=== PATIENT | male | born 1935 | race Caucasian/White ===

== ENCOUNTER 2022-02-21 08:37 | Day surgery (SDC) | payer MEDICARE, MEDICAID, SELFPAY ==
[2022-02-18 12:09] VITALS: BMI 29.0
--- NOTE | 2022-02-21 07:39 | W.PM.OPSFHP ---
Same Day Surgery H&P Indication for Procedure/HPI DATE OF PROCEDURE: February 21, 2022 CHIEF COMPLAINT/INDICATIONFOR SURGICAL PROCEDURE: Black tarry stool black black tarry stools and bleeding tarry black stools and PREOP DIAGNOSIS: Hematochezia hematochezia PLANNED PROCEDURE: Operation Date: 02/21/22 10:00 Proposed Procedures p EGD [id number],K92.1(Not Applicable) - Wade Hugo MD s Colonoscopy(Not Applicable) - Wade Hugo MD Medications/Allergies* Home Medications Medication Instructions Recorded Confirmed Type amlodipine 10 mg tablet 10 mg PO DAILY 01/13/22 01/19/22 History aspirin 325 mg tablet 325 mg PO DAILY 01/13/22 01/19/22 History baclofen 10 mg tablet 10 mg PO DAILY 01/13/22 01/13/22 History buspirone 10 mg tablet 10 mg PO BID 01/13/22 01/19/22 History celecoxib 100 mg capsule (Celebrex) 100 mg PO BID 01/13/22 01/13/22 History citalopram 20 mg tablet 20 mg PO DAILY 01/13/22 01/19/22 History docusate sodium 50 mg capsule 50 mg PO DAILY 01/13/22 01/19/22 History (Colace Clear) furosemide 20 mg tablet (Lasix) 20 mg PO DAILY 01/13/22 01/19/22 History gabapentin 300 mg capsule 300 mg PO DAILY 01/13/22 01/19/22 History (Neurontin) glipizide 10 mg tablet (Glucotrol) 10 mg PO DAILY 01/13/22 01/19/22 History hydrochlorothiazide 25 mg tablet 25 mg PO DAILY 01/13/22 01/19/22 History insulin glargine 100 unit/mL (3 10 unit SUBCUT BID 01/13/22 01/19/22 History mL) subcutaneous pen (Lantus Solostar U-100 Insulin) levocetirizine 5 mg tablet (Xyzal) 5 mg PO DAILY 01/13/22 01/19/22 History levothyroxine 175 mcg capsule 175 mcg PO DAILY 01/13/22 01/19/22 History metformin 500 mg tablet 500 mg PO DAILY 01/13/22 01/19/22 History metoclopramide HCl 10 mg tablet 10 mg PO Q6H PRN 01/13/22 01/19/22 History (Reglan) mirtazapine 15 mg tablet (Remeron) 15 mg PO DAILY 01/13/22 01/19/22 History omeprazole magnesium 20 mg 20 mg PO DAILY 01/13/22 01/19/22 History tablet,delayed release (Prilosec OTC) oxybutynin chloride 5 mg 5 mg PO DAILY 01/13/22 01/19/22 History tablet,extended release 24 hr tamsulosin 0.4 mg capsule (Flomax) 0.4 mg PO DAILY 01/13/22 01/19/22 History guaifenesin 600 mg tablet, 600 mg PO BID PRN 01/19/22 01/19/22 History extended release 12 hr (Mucinex) tyaftpza-egf-bfbzi acid 300 1 tab PO DAILY 01/19/22 01/19/22 History mcg-lycopene 600 mcg-lutein 300 mcg tablet (Men 50 Plus Multivitamin) nystatin 100,000 unit/gram topical 1 applic TOPICAL DAILY PRN 01/19/22 01/19/22 History ointment potassium chloride 10 mEq 10 meq PO DAILY 01/19/22 01/19/22 History capsule,extended release sennosides 8.6 mg-docusate sodium 1 tab-cap PO .2 daily tab 01/19/22 01/19/22 History 50 mg tablet (Senexon-S) tramadol 50 mg tablet 50 mg PO DAILY PRN 01/19/22 01/19/22 History vit C,E,zinc,copper-drjto6n 250 1 cap PO DAILY 01/19/22 01/19/22 History mg-lutein 5 mg-zeaxanthin 1 mg capsule (Ocuvite Adult 50 Plus) Allergies/Adverse Reactions Allergy/AdvReac Type Severity Reaction Status Date / Time pseudoephedrine Allergy ADR-Abdominal Verified 01/19/22 13:05 Pain Pertinent History/Comorbid Conditions* Social History Smoking and tobacco status: former smoker Pertinent Exam Findings alert, oriented x 3, clear to auscultation bilaterally, regular rate & rhythm, operative site marked and procedure specific exam findings Recommendations Surgery/Procedure today Coding Level of Care Code Acute Enlisted Advisor for Alisia Currie
[2022-02-21 09:00] VITALS: BP 141/68; PULSE 73; RESP 18; TEMP 36.1; O2SAT 99
[2022-02-21] MEDS: sodium chloride 0.9% 1,000 ML 30 ML IV (09:04)
--- NOTE | 2022-02-21 10:32 | P.ANESASSM_ITS ---
Pre-Anesthetic Assessment Height/Weight: Height 1.85 m Weight 99.79 kg Temp Pulse Resp BP Pulse Ox 97 F L 73 18 141/68 99 02/21/22 09:00 02/21/22 09:00 02/21/22 09:00 02/21/22 09:00 02/21/22 09:00 Preop Diagnosis: melena, hematochezia Operation Date: 02/21/22 10:00 Proposed Procedures p EGD [id number],K92.1(Not Applicable) - Wade Hugo MD s Colonoscopy(Not Applicable) - Wade Hugo MD Familial anesthetic complications: none Was Beta Sascha taken within 24 hours: N/A Was Clonidine taken within 24 hours: N/A Last intake: Intake Last Liquid Date 02/20/22 Last Liquid Time 19:30 Last Solid Date 02/19/22 Last Solid Time 14:00 Social No alcohol and No tobacco Exam alert, oriented x 3, clear to auscultation bilaterally and regular rate & rhythm Airway Mallampati: Class III Dentition: full Pulmonary None reported CV/HEM Hypertension GI Gastroesophageal Reflux Disease [facility] [place] None reported Neuropsych None reported Anesthetic Plan ASA status: 3 Anesthesia: MAC Risk of > 500 ml blood loss (7ml/kg in children): No Medications/Allergies Home Medications Medication Instructions Recorded Confirmed Last Taken Type amlodipine 10 mg tablet 10 mg PO DAILY 01/13/22 02/21/22 02/20/22 History aspirin 325 mg tablet 325 mg PO DAILY 01/13/22 02/21/22 02/20/22 History baclofen 10 mg tablet 10 mg PO DAILY 01/13/22 02/21/22 02/20/22 History buspirone 10 mg tablet 10 mg PO BID 01/13/22 02/21/22 02/20/22 History celecoxib 100 mg capsule (Celebrex) 100 mg PO BID 01/13/22 02/21/22 02/20/22 History citalopram 20 mg tablet 20 mg PO DAILY 01/13/22 02/21/22 02/20/22 History docusate sodium 50 mg capsule 50 mg PO DAILY 01/13/22 02/21/22 02/20/22 History (Colace Clear) furosemide 20 mg tablet (Lasix) 20 mg PO DAILY 01/13/22 02/21/22 02/20/22 History gabapentin 300 mg capsule 300 mg PO DAILY 01/13/22 02/21/22 02/20/22 History (Neurontin) glipizide 10 mg tablet (Glucotrol) 10 mg PO DAILY 01/13/22 02/21/22 02/20/22 History hydrochlorothiazide 25 mg tablet 25 mg PO DAILY 01/13/22 02/21/22 02/20/22 History insulin glargine 100 unit/mL (3 10 unit SUBCUT DAILY 01/13/22 02/21/22 02/20/22 History mL) subcutaneous pen (Lantus Solostar U-100 Insulin) levocetirizine 5 mg tablet (Xyzal) 5 mg PO DAILY 01/13/22 02/21/22 02/20/22 History levothyroxine 175 mcg capsule 175 mcg PO DAILY 01/13/22 02/21/22 02/20/22 History metformin 500 mg tablet 500 mg PO DAILY 01/13/22 02/21/22 02/20/22 History metoclopramide HCl 10 mg tablet 10 mg PO Q6H PRN 01/13/22 02/21/22 02/20/22 History (Reglan) mirtazapine 15 mg tablet (Remeron) 15 mg PO DAILY 01/13/22 02/21/22 02/20/22 History omeprazole magnesium 20 mg 20 mg PO DAILY 01/13/22 02/21/22 02/19/22 History tablet,delayed release (Prilosec OTC) oxybutynin chloride 5 mg 5 mg PO DAILY 01/13/22 02/21/22 02/20/22 History tablet,extended release 24 hr tamsulosin 0.4 mg capsule (Flomax) 0.4 mg PO DAILY 01/13/22 02/21/22 02/20/22 History guaifenesin 600 mg tablet, 600 mg PO BID PRN 01/19/22 02/21/22 02/20/22 History extended release 12 hr (Mucinex) cgkppwdz-ztq-vqjnw acid 300 1 tab PO DAILY 01/19/22 02/21/22 02/20/22 History mcg-lycopene 600 mcg-lutein 300 mcg tablet (Men 50 Plus Multivitamin) nystatin 100,000 unit/gram topical 1 applic TOPICAL DAILY PRN 01/19/22 02/21/22 02/20/22 History ointment potassium chloride 10 mEq 10 meq PO DAILY 01/19/22 02/21/22 02/20/22 History capsule,extended release sennosides 8.6 mg-docusate sodium 1 tab-cap PO BID tab 01/19/22 02/21/22 02/20/22 History 50 mg tablet (Senexon-S) tramadol 50 mg tablet 50 mg PO DAILY 01/19/22 02/21/22 02/20/22 History vit C,E,zinc,copper-loiot0g 250 1 cap PO DAILY 01/19/22 02/21/22 02/19/22 History mg-lutein 5 mg-zeaxanthin 1 mg capsule (Ocuvite Adult 50 Plus) Allergies Allergy/AdvReac Type Severity Reaction Status Date / Time pseudoephedrine Allergy ADR-Abdominal Verified 01/19/22 13:05 Pain Current Medications Generic Name Dose Route Start Last Admin Trade Name Freq PRN Reason Stop Dose Admin Sodium Chloride 1,000 mls @ 30 mls/hr 02/21/22 09:00 02/21/22 09:04 Sodium Chloride 0.9% IV 02/22/22 08:59 30 mls/hr .Q24H MALACHI Administration PFSH Anesthesia Social History Smoking and tobacco status: former smoker Data Anesthesia Cardiac Studies: No Data to Display
[2022-02-21 11:13] VITALS: BP 107/59; PULSE 63; RESP 16; TEMP 36.1; O2SAT 99
--- NOTE | 2022-02-21 11:13 | ANE.PACU2 ---
Inpatient post-anesthesia follow up: Airway intact: Yes Vital signs: Temperature 97 F Pulse Rate 73 Respiratory Rate 18 Blood Pressure 141/68 Pulse Oximetry 99 Oxygen Delivery Me thod Room Air Oxygen Flow Rate Fraction of Inspir ed Oxygen Hydration adequate: Yes Nausea and vomiting: No Pain level: 1 Mental status: Baseline
[2022-02-21 11:27] VITALS: BP 149/77; PULSE 64; RESP 18; O2SAT 99
[2022-02-22 12:50] LABS: H. Pylori / CLO Test Negative
== END 2022-02-21 11:44 | disposition home or self-care (01) ==
PROVIDERS: Visit Provider Internal Medicine
PROC: 0DJ08ZZ Inspection of Upper Intestinal Tract, Via Natural or Artificial Opening Endoscopic (ICD-10-PCS; CPT 43235; principal; 2022-02-21 10:00)
PROC: 0DJD8ZZ Inspection of Lower Intestinal Tract, Via Natural or Artificial Opening Endoscopic (ICD-10-PCS; CPT 45378; 2022-02-21 10:00)
DX: K92.1 Melena (principal); K29.70 Gastritis, unspecified, without bleeding; I10 Essential (primary) hypertension; K21.9 Gastro-esophageal reflux disease without esophagitis; Z79.82 Long term (current) use of aspirin; Z79.4 Long term (current) use of insulin; Z87.891 Personal history of nicotine dependence
CPT/HCPCS: 43239; 45378; 87077; J2704; J7030